=== PATIENT | female | born 1975 | race Caucasian/White ===

== ENCOUNTER 2017-04-04 08:29 | Emergency (ER) | payer SELFPAY ==
[~2017-04-04] VITALS: Ht 157.5 cm; Wt 78.0 kg
[2017-04-04 08:33] VITALS: Ht 157.5 cm; Wt 78.0 kg
[2017-04-04] MEDS ORDERED: HYDROCODONE/APAP (5/325) TAB PO ONE (09:30)
[2017-04-04] MEDS ORDERED: DIPHTH/TET/ACEL PERTUSS (ADULT) 0.5 ML VIAL IM* ONE (09:30)
--- NOTE | 2017-04-04 10:08 | RADRPT ---
PROCEDURE: CT Brain without contrast. CLINICAL INDICATION: Trauma TECHNIQUE: CT scan of the brain was performed on a multidetector high-resolution CT scan. Axial im aging was obtained of the brain without contrast administration. Coronal and sagittal reformatted i mages were obtained from the axial source images. Standard CT scan of the head without contrast prot ocols were performed. The total exam CTDI equals 43.86 mGy and the total exam DLP equals 630.2 mGy-cm. One or more of the following dose reduction techniques were used: - Automated exposure control. - Adjustment of the mA and/or kV according to patient size. Use of iterative reconstruction technique. Dicom images are available COMPARISON: None. FINDINGS: The ventricular system and peripheral CSF spaces are unremarkable. Negative for intracranial masses hemorrhages or midline shift. The abebe-white matter junction is unremarkable. The bones of the herberth rium are intact. The visualized paranasal sinuses and mastoids are unremarkable. IMPRESSION: No evidence of intracranial masses hemorrhages or midline shift. RPTAT:AAJJ Physician Sam Date Time Electronically viewed and signed by Physician Sam on 04/04/2017 10:08 BM/
--- NOTE | 2017-04-04 10:14 | RADRPT ---
PROCEDURE: CT scan of the facial bones without contrast. CLINICAL INDICATION: Trauma TECHNIQUE: CT scan of the facial bones without contrast was performed on a multidetector high-res olution CT scan. Standard CT scan of the facial bones without contrast protocols were performed. The total exam CTDI equals 29.48 mGy and the total exam DLP equals 557.28 mGy-cm. One or more of the following dose reduction techniques were used: - Automated exposure control. - Adjustment of the mA and/or kV according to patient size. Use of iterative reconstruction technique. Dicom images are available COMPARISON: None. FINDINGS: There is mild soft tissue swelling/hematoma involving the medial right periorbital region and along the anterior inferior right frontal scalp. There is no evidence of facial fractures. Bony mineraliza tion is normal without focal bony blastic or lytic lesions. Temporomandibular joints are unremarkabl e. There are no air-fluid levels within the paranasal sinuses. Small mucous retention cyst involving the lateral posterior left maxillary sinus. Remainder the paranasal sinuses are well pneumatized. T he globes are symmetrical without evidence of rupture or proptosis. No evidence of intra or extracon al fluid collections or masses bilaterally. The optic nerves and ophthalmic muscles are unremarkable . IMPRESSION: 1. Soft tissue swelling/hematoma involving the inferior medial right frontal scalp and medial perio rbital region as above. 2. No evidence of acute fractures. 3. Unremarkable orbits. 4. Small mucous retention cyst involving left maxillary sinus. RPTAT:AAJJ Physician Sam Date Time Electronically viewed and signed by Physician Sam on 04/04/2017 10:14 BM/
--- NOTE | 2017-04-04 10:45 | RADRPT ---
PROCEDURE: Left hand x-ray CLINICAL INDICATION: Trauma TECHNIQUE: AP, lateral and oblique views of the left hand were obtained. COMPARISON: None FINDINGS: There is normal mineralization. No acute fracture or dislocation is seen. There are no significant degenerative changes. There is no significant soft tissue swelling. IMPRESSION: Normal x-ray of the left hand x-ray . .Roe Mc MD, MD Date Time Electronically viewed and signed by .Roe Mc MD, on 04/04/2017 10:44 .A/
[2017-04-04] MEDS ORDERED: CEPH-443 PO (10:56)
[2017-04-04] MEDS ORDERED: IBUP-1542 PO (10:56)
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
== END 2017-04-04 11:28 | disposition home or self-care (01) ==
LOC: FTE 08:29
DX: S02.5XXA Fracture of tooth (traumatic), initial encounter for closed fracture (principal); S60.222A Contusion of left hand, initial encounter; W22.8XXA Striking against or struck by other objects, initial encounter; Y92.811 Bus as the place of occurrence of the external cause; Z23 Encounter for immunization
CPT/HCPCS: 70450; 70486; 90471; 90715